=== PATIENT | female | born 2000 | race Caucasian/White ===

== ENCOUNTER 2019-05-21 22:46 | Emergency (ER) | payer BC ==
[~2019-05-21] VITALS: Ht 165.1 cm; Wt 56.7 kg
[2019-05-21 22:52] VITALS: Ht 165.1 cm; Wt 56.7 kg
[2019-05-22 00:45] VITALS: BP 127/61
== END 2019-05-22 00:45 | disposition home or self-care (01) ==
LOC: ED 22:46
DX: J02.9 Acute pharyngitis, unspecified (principal)
CPT/HCPCS: 87804; J1885